=== PATIENT | female | born 1960 | race Caucasian/White ===

== ENCOUNTER 2021-02-20 06:17 | Day surgery (SDC) | payer BC ==
[2021-02-16 14:22] VITALS: BMI 27.4
[~2021-02-20 06:17] MED LIST: EPINEPHrine 0.3 MG in Ophthalmic Irrigation Solution 500 ML IRR SCH
[2021-02-20] MEDS ORDERED: Fentanyl 100 MCG/2 ML VIAL ONE (06:22)
[2021-02-20] MEDS ORDERED: PROPOFOL 20 ML ONE (06:22)
[2021-02-20] MEDS ORDERED: Midazolam HCl 2 mg/2 ml Vial ONE (06:22)
[2021-02-20] MEDS ORDERED: EPINEPHrine 0.3 MG in Ophthalmic Irrigation Solution 500 ML IRR SCH (06:30)
[2021-02-20] MEDS ORDERED: Cyclopentolate W/ Phenylephrin 40 DROP/2 ML BOT ONE (06:32)
[2021-02-20] MEDS ORDERED: Cyclopentolate 1% Opth Drop 2 ML BOT ONE (07:01)
[2021-02-20] MEDS ORDERED: CEFAZOLIN 1 GM VIAL ONE (07:29)
[2021-02-20] MEDS ORDERED: Maxitrol 0.1% Opth Oint 3.5 GM TUBE ONE (07:29)
[2021-02-20] MEDS ORDERED: Bupivacaine PF 0.75% SDV 10 ML ONE (07:29)
[2021-02-20] MEDS ORDERED: Lidocaine 1% PF 5 ML VIAL ONE (07:29)
[2021-02-20] MEDS ORDERED: Triamcinolone 40 MG/ML VIAL ONE (07:29)
[2021-02-20] MEDS ORDERED: Lidocaine 4% PF 5 ML AMP ONE (07:29)
== END 2021-02-20 08:29 | disposition home or self-care (01) ==
LOC: SDC 06:17
PROVIDERS: ATTEND Ophthalmology Retina Specialist
PROC: 08T43ZZ Resection of Right Vitreous, Percutaneous Approach (ICD-10-PCS; principal; 2021-02-20)
DX: H43.391 Other vitreous opacities, right eye (principal); Z79.899 Other long term (current) drug therapy; Z88.8 Allergy status to other drugs, medicaments and biological substances
CPT/HCPCS: J0171; J0690; J2250; J2704; J3010; J3301; J3490